=== PATIENT | female | born 1980 | race Native Hawaiian/Other Pacific Islander ===

== ENCOUNTER 2017-05-20 07:33 | Day surgery (SDC) | payer BC ==
[2017-05-20] MEDS ORDERED: PROPOFOL 10 MG/ML VIAL IV ONE (07:34)
[2017-05-20] MEDS ORDERED: FENTANYL PF 100MCG/2ML VIAL IV ONE (07:34)
[2017-05-20] MEDS ORDERED: LIDOCAINE 2% MDV (20MG/ML) 20ML VIAL IV ONE (07:34)
[2017-05-20] MEDS ORDERED: MIDAZOLAM HCL 2MG/2ML VIAL IV ONE (07:34)
--- NOTE | 2017-05-21 12:30 | Operative Note ---
DATE OF SURGERY: 05/20/2017 OPERATION: 1. ESOPHAGOGASTRODUODENOSCOPY with biopsy. 2. COLONOSCOPY. PREOPERATIVE DIAGNOSIS: Family history of inflammatory bowel disease as well as secondary family history of colon cancer and heartburn and abdominal pain. POSTOPERATIVE DIAGNOSES: 1. Normal colonoscopy. 2. Mild nonerosive gastric erythema, rule out occult H pylori infection. SPECIMENS: Gastric. ESTIMATED BLOOD LOSS: Minimum. PREPARATION QUALITY: Good for colonoscopy. COMPLICATIONS: None apparent. PROCEDURE: After informed consent was obtained from the patient, she was placed in the left lateral decubitus position in the endoscopy suite, sedated and monitored by the department of anesthesia. Once sedated, a well-lubricated [id number] gastroscope was placed in the posterior oropharynx and under direct visualization passed to the proximal esophagus. The endoscope was advanced through the proximal, mid, and distal esophagus. The GE junction was unremarkable. The gastric body and antrum were inspected revealing mild erythema in the antrum. The pylorus, duodenal bulb, and sweep were unremarkable. No evidence to suggest celiac sprue was identified. J-turn views of the proximal stomach were unremarkable. The endoscope was then straightened. Random gastric biopsies were obtained. No excessive bleeding was noted. The endoscope was removed from the patient with no new findings noted. Digital rectal exam was unremarkable. A well-lubricated [id number] colonoscope was inserted into the rectum and advanced to the cecum. Preparation quality was good. The cecum, ileocecal valve, appendiceal orifice, terminal ileum, ascending colon, transverse colon, descending colon, sigmoid colon, and rectum were inspected. There were no polyps, mass lesions, or inflammation seen. J-turn views of the anorectum were unremarkable. The endoscope was straightened, the rectal ampulla deflated, and the endoscope was removed. RECOMMENDATIONS: I would suggest the patient resume her medications and diet. Repeat colonoscopy at age 50 would be suggested. As always, thank you for allowing me to participate in the healthcare of your patients. CC: Dr. Davion REYNOLDS
== END 2017-05-20 09:52 | disposition home or self-care (01) ==
LOC: HOP 07:33
PROVIDERS: ATTEND Internal Medicine Gastroenterology
DX: K29.60 Other gastritis without bleeding (principal); R12 Heartburn
CPT/HCPCS: 00813; 43239; G0121